=== PATIENT | female | born 1955 | race Caucasian/White ===

== ENCOUNTER 2020-01-19 10:02 | Emergency (ER) | payer MEDICAID, MEDICARE, OTHER ==
[~2020-01-19] VITALS: Ht 152.4 cm; Wt 56.8 kg
[~2020-01-19 10:02] MED LIST: /ALEN70TA; KLON2TAB; LEXA1TAB2; METO-743; NEXI1CAP3; REME30TA; ZOCO20TA
[2020-01-19] MEDS ORDERED: BUPR1TAB52 (10:25)
[2020-01-19] MEDS ORDERED: MIRT1TAB (10:25)
[2020-01-19] MEDS ORDERED: ATIV1TAB10 (10:25)
[2020-01-19] MEDS ORDERED: BUSP15TA47 (10:25)
[2020-01-19] MEDS ORDERED: LAMO25TA4 (10:25)
[2020-01-19] MEDS ORDERED: FERR325T18 (10:25)
[2020-01-19] MEDS ORDERED: FOLI1TAB11 (10:25)
[2020-01-19] MEDS ORDERED: HYDR50TA70 (10:25)
[2020-01-19] MEDS ORDERED: ISOVUE-370 76% 100ML VIAL As Ordered ONE (10:33)
[2020-01-19] MEDS ORDERED: ONDANSETRON 4MG/2ML VIAL As Ordered ONE (10:40)
[2020-01-19] MEDS ORDERED: ONDANSETRON 4MG/2ML VIAL IV ONE (10:45)
[2020-01-19 10:47] LABS: BASO % 0.6 % (0.0-1.0); EOS # 0.1 10^3/uL (0.0-0.5); EOS % 0.9 % (0.0-3.0); HEMATOCRIT 37.6 % (36.0-47.0); HEMOGLOBIN 11.6 g/dl (12.0-15.5); LYMPH # 1.5 10^3/uL (1.5-5.0); MEAN CORPUSCULAR HEMOGLOBIN 27.6 pg (27.0-33.0); MEAN CORPUSCULAR HGB CONC 30.9 g/dl (32.0-36.5); MEAN CORPUSCULAR VOLUME 89.3 fl (80.0-96.0); MONO # 0.4 10^3/uL (0.0-0.8); MONO % 5.4 % (0.0-5.0); NEUTROPHILS # 4.8 10^3/uL (1.5-8.5); NEUTROPHILS % 70.8 % (36.0-66.0); PLATELET COUNT, AUTOMATED 292 10^3/uL (150-450); RED BLOOD COUNT 4.21 10^6/uL (4.00-5.40); WHITE BLOOD COUNT 6.8 10^3/uL (4.0-10.0)
[2020-01-19 10:58] LABS: INR 1.15
[2020-01-19 11:06] LABS: VENOUS BASE EXCESS -4.1 (-2.0-2.0); VENOUS HCO3 20.1 MEQ/L (23.0-27.0); VENOUS O2 SATURATION 95.4 % (60.0-80.0); VENOUS PARTIAL PRESSURE CO2 33.8 mmHg (38.0-50.0); VENOUS PARTIAL PRESSURE O2 72.7 mmHg (30.0-50.0); VENOUS PH 7.392 UNITS (7.330-7.430); VENOUS STANDARD HCO3 21.1 MEQ/L; VENOUS TOTAL CO2 21.1 MEQ/L (24.0-28.0)
--- NOTE | 2020-01-19 11:13 | REPVR ---
PROCEDURE INFORMATION: Exam: CT Head Without Contrast Exam date and time: 01/19/2020 10:47 AM Age: 64 years old Clinical indication: Dizziness; Additional info: CVA. TECHNIQUE: Imaging protocol: Computed tomography of the head without contrast. Radiation optimization: All CT scans at this facility use at least one of these dose optimization techniques: automated exposure control; mA and/or kV adjustment per patient size (includes targeted exams where dose is matched to clinical indication); or iterative reconstruction. Other technique: STROKE PROTOCOL was implemented. COMPARISON: No relevant prior studies available. FINDINGS: Limitations: No sagittal reformatted images. Brain: There is no mass effect. There is no evidence of acute cortical infarct or intracranial mass lesion. Strauss-white matter differentiation is normal. There is no extra-axial fluid collection. No midline shift. Cerebral ventricles: The ventricular system size is within normal limits for the patient's 64 years of age. Bones/joints: Unremarkable. No acute fracture. Paranasal sinuses: Visualized sinuses are unremarkable. No fluid levels. Mastoid air cells: Visualized mastoid air cells are well aerated. Orbital cavity: Normal. Soft tissues: Unremarkable. IMPRESSION: No acute intracranial abnormality. ASSESSMENT: ASPECTS ([place] Stroke Program Early CT Score) is 10. Electronically signed by: Saman Tomas On 01/19/2020 11:13:33 AM
--- NOTE | 2020-01-19 11:18 | REP ---
INDICATION: chest pressure COMPARISON: None TECHNIQUE: Axial contrast enhanced images from the thoracic inlet to the upper abdomen with coronal and sagittal reformations using 100 ml Isovue 370 intravenous contrast material followed by CT of the abdomen and pelvis.. This CT examination was performed using the following dose reduction techniques: Automated exposure control, adjustment of mA and/or kv according to the patient's size, and use of iterative reconstruction technique. FINDINGS: Bilateral lung diamond are relatively well aerated and essentially clear. Minimal posterior basilar dependent changes are noted. No consolidation, effusion, or pneumothorax. Tracheobronchial tree is patent. No obvious adenopathy. Atherosclerotic changes to the thoracic aorta and coronary arteries noted without aortic aneurysm, dissection, or cardiomegaly. No pericardial effusion. Thyroid gland is normal. Musculoskeletal structures are intact and without acute abnormality. IMPRESSION: No acute mediastinal or pleuroparenchymal process. <Electronically signed by Dawit Hoang > 01/19/20 [id number]
--- NOTE | 2020-01-19 11:23 | REP ---
INDICATION: CVA. COMPARISON: 01/26/2008. TECHNIQUE: Single frontal view of the chest is performed. FINDINGS: There is no acute infiltrate or pulmonary edema. The heart is not significantly enlarged. There is mild calcification and tortuosity of the thoracic aorta. The mediastinal silhouette is unremarkable. There are old right rib fractures. IMPRESSION: No acute infiltrate. <Electronically signed by Sergio Strauss > 01/19/20 111
[2020-01-19 11:26] LABS: ALBUMIN 3.5 GM/DL (3.2-5.2); ALT/SGPT 147 U/L (12-78); BILIRUBIN,DIRECT 0.1 MG/DL (0.0-0.2); BILIRUBIN,TOTAL 0.4 MG/DL (0.2-1.0); CPK CREATINE PHOSPHOKINASE 73 U/L (26-192); FREE T4 0.75 NG/DL (0.76-1.46); LIPASE 98 U/L (73-393); MAGNESIUM LEVEL 2.1 MG/DL (1.8-2.4); MB/CK RELATIVE INDEX 2.74 (< OR =4); NT-PRO BNP 2971 PG/ML (<125); TOTAL PROTEIN 7.3 GM/DL (6.4-8.2); TROPONIN I < 0.02 NG/ML (< 0.10)
--- NOTE | 2020-01-19 11:26 | REP ---
INDICATION: n,v lower abd pain. COMPARISON: None TECHNIQUE: Axial contrast-enhanced images from the lung bases to the pubic symphysis using 100 cc Isovue 370 intravenous contrast material. Coronal and sagittal reformations obtained. This CT examination was performed using the following dose reduction techniques: Automated exposure control, adjustment of mA and/or kv according to the patient's size, and the use of iterative reconstruction technique. FINDINGS: Liver, spleen, pancreas, gallbladder, bilateral adrenal glands and kidneys are normal. Incidental subcentimeter renal hypodensities are too small to characterize but likely represent benign cysts. There is mild mucosal thickening involving the colon with minimal scattered pericolonic haziness suggesting the possibility of a mild infectious/inflammatory pancolitis. Colonic and sigmoid diverticulosis noted without obvious acute diverticulitis. No evidence for bowel obstruction. No free air. No free fluid. Pelvis demonstrates normal bladder and evidence for prior hysterectomy. No ascites. No significant adenopathy. Atherosclerotic changes to the aorta and vasculature without aneurysm or dissection. Musculoskeletal structures demonstrate age-related changes without acute osseous abnormality. IMPRESSION: Possible infectious/inflammatory colitis requires correlation. No further acute abdominopelvic pathology appreciated. <Electronically signed by Dawit Hoang > 01/19/20 [id number]
--- NOTE | 2020-01-19 11:28 | REPVR ---
PROCEDURE INFORMATION: Exam: CT Angiography Head With Contrast Exam date and time: 01/19/2020 10:47 AM Age: 64 years old Clinical indication: Pain; Headache; Additional info: CVA - nursing interventions must not delay CT TECHNIQUE: Imaging protocol: Computed tomography angiography of the head with intravenous contrast. 3D rendering (Not supervised by radiologist): MIP and/or 3D reconstructed images were created by the technologist. Radiation optimization: All CT scans at this facility use at least one of these dose optimization techniques: automated exposure control; mA and/or kV adjustment per patient size (includes targeted exams where dose is matched to clinical indication); or iterative reconstruction. Contrast material: ISOVUE 370; Contrast volume: 100 ml; Contrast route: INTRAVENOUS (IV); COMPARISON: CT head 01/19/20. FINDINGS: ANTERIOR CIRCULATION: Right internal carotid artery: Unremarkable. Intracranial segment is patent with no significant stenosis. No aneurysm. Right middle cerebral artery: Unremarkable. No occlusion or significant stenosis. No aneurysm. Right anterior cerebral artery: Unremarkable. No occlusion or significant stenosis. No aneurysm. Left internal carotid artery: Unremarkable. Intracranial segment is patent with no significant stenosis. No aneurysm. Left middle cerebral artery: Unremarkable. No occlusion or significant stenosis. No aneurysm. Left anterior cerebral artery: Unremarkable. No occlusion or significant stenosis. No aneurysm. POSTERIOR CIRCULATION: Right vertebral artery: Unremarkable. No occlusion or significant stenosis. No aneurysm. Left vertebral artery: Unremarkable. No occlusion or significant stenosis. No aneurysm. Basilar artery: Unremarkable. No occlusion or significant stenosis. No aneurysm. Right posterior cerebral artery: Unremarkable. No occlusion or significant stenosis. No aneurysm. Left posterior cerebral artery: Unremarkable. No occlusion or significant stenosis. No aneurysm. Brain: No definite mass, mass effect, or midline shift. Cerebral ventricles: No ventriculomegaly. Bones/joints: Unremarkable. No acute fracture. Soft tissues: Unremarkable. IMPRESSION: No occlusion or significant stenosis of the intracranial arteries. Electronically signed by: Saman Tomas On 01/19/2020 11:28:20 AM
[2020-01-19] MEDS ORDERED: NS 500 ML IV ONE (11:30)
[2020-01-19] MEDS ORDERED: LORazepam 0.5 MG TAB PO STA (12:05)
--- NOTE | 2020-01-19 14:07 | REPVR ---
PROCEDURE INFORMATION: Exam: CT Angiography Neck With Contrast Exam date and time: 01/19/2020 10:47 AM Age: 64 years old Clinical indication: Headache; CVA. TECHNIQUE: Imaging protocol: Computed tomography angiography of the neck with intravenous contrast. 3D rendering (Not supervised by radiologist): MIP and/or 3D reconstructed images were created by the technologist. Radiation optimization: All CT scans at this facility use at least one of these dose optimization techniques: automated exposure control; mA and/or kV adjustment per patient size (includes targeted exams where dose is matched to clinical indication); or iterative reconstruction. Contrast material: ISOVUE 370; Contrast volume: 100 ml; Contrast route: INTRAVENOUS (IV); COMPARISON: No relevant prior studies available. FINDINGS: Right common carotid artery: No stenosis. No dissection or occlusion. Right internal carotid artery: No stenosis of the extracranial segment. Minimal calcified plaque at the bulb. No dissection or occlusion. Right external carotid artery: No occlusion or stenosis of the origin. Right vertebral artery: No stenosis. No dissection or occlusion. Non dominant. Left common carotid artery: No stenosis. No dissection or occlusion. Left internal carotid artery: No stenosis of the extracranial segment. Mild partially calcified plaque at the bulb. No dissection or occlusion. Left external carotid artery: No occlusion or stenosis of the origin. Left vertebral artery: No stenosis. No dissection or occlusion. Dominant. Bones/joints: No acute fracture. Soft tissues: Normal. No significant soft tissue swelling. IMPRESSION: No stenosis or occlusion. REFERENCES: NASCET CRITERIA. The degree of internal carotid artery stenosis is based on NASCET criteria. Normal is no stenosis. Mild is less than 50% stenosis. Moderate is 50-69% stenosis. Severe is 70% to 99% stenosis. Total occlusion is no detectable patent lumen. Electronically signed by: Saman Tomas On 01/19/2020 14:07:18 PM
[2020-01-19] MEDS ORDERED: ACETAMINOPHEN 325 MG TAB PO ONE (14:30)
[2020-01-19] MEDS ORDERED: PROMETHAZINE INJ 25 MG/ML VIAL (J2550) IV ONE (14:30)
[2020-01-19] MEDS ORDERED: diphenhydrAMINE 50MG/ML VIAL (J1200) IV ONE (15:45)
[2020-01-19] MEDS ORDERED: ONDANSETRON 4 MG ORAL DISINTEGRATING TAB PO ONE (17:00)
[2020-01-19 17:20] VITALS: BP 160/83
--- NOTE | 2020-01-19 22:03 | ECGEPIP ---
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
--- NOTE | 2020-01-19 22:09 | ECGEPIP ---
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
== END 2020-01-19 17:23 | disposition home or self-care (01) ==
LOC: M ED 10:02 → EDBD 10:02 → M ED 17:23
DX: R42 Dizziness and giddiness (principal); R07.9 Chest pain, unspecified; I10 Essential (primary) hypertension; F33.9 Major depressive disorder, recurrent, unspecified; F41.9 Anxiety disorder, unspecified; G40.909 Epilepsy, unspecified, not intractable, without status epilepticus; G93.40 Encephalopathy, unspecified; Z79.899 Other long term (current) drug therapy; Z88.1 Allergy status to other antibiotic agents; Z88.8 Allergy status to other drugs, medicaments and biological substances; Z87.891 Personal history of nicotine dependence
CPT/HCPCS: 70450; 70496; 70498; 71045; 71260; 74177; 80047; 80076; 82550; 82553; 82803; 83690; 83735; 83880; 84439; 84443; 84484; 85025; 85610; 85730; 86850; 86900; 86901; 93005; 93041; 96361; 96374; 96375; 97112; 97116; 97161; 99285; J1200; Q0162; Q9967